=== PATIENT | male | born 1970 | race Caucasian/White ===

== ENCOUNTER → 2019-01-22 09:28 | Outpatient (CLI) | payer OTHER, SELFPAY ==
[2019-01-17 14:19] VITALS: BMI 35.8
--- NOTE | 2019-01-22 09:46 | EKG12_ITS ---
Test Reason : Blood Pressure : / mmHG Vent. Rate : 071 BPM Atrial Rate : 071 BPM P-R Int : 172 ms QRS Dur : 092 ms QT Int : 374 ms P-R-T Axes : 064 012 020 degrees QTc Int : 406 ms Normal sinus rhythm Normal ECG Confirmed by TIFFANY MARTINEZ, BRITNEY ([id number]), desk editor YUAN ABDALLA ([id number]) on 01/24/2019 9:49:24 AM Referred By: Sarabjit Ayers Confirmed By:BRITNEY ALLEN MD
[2019-01-22 10:47] LABS: Absolute Lymphocyte Count 1.86 X10^3/uL (0.83-4.51); Absolute Neutrophil Count 2.9 X10^3/uL (2.0-7.7); Basophil# 0.03 X10^3/uL; Basophil% 0.6 % (0-1); Eosinophil# 0.21 X10^3/uL; Eosinophils% 3.9 % (0-5); Hematocrit 46.1 % (40-54); Hemoglobin 15.4 g/dL (13.0-16.5); Lymphocyte # 1.86 X10^3/ul (4.0); Lymphocyte % 34.1 % (19-41); Mean Corp Hgb Conc 33.4 g/dL (32-36); Mean Corpuscular Hgb 27.9 pg (27.0-32.0); Mean Corpuscular Volume 83.7 fL (80-94); Mean Platelet Vol. 10.3 fl (6.2-12.0); Monocyte# 0.41 X10^3/uL; Monocyte% 7.5 % (0-10); NRBC Flagged by Analyzer 0 % (0-5); Neutrophil # 2.93 X10^3/uL (2.7-7.7); Neutrophil % 53.7 % (47-70); Platelet Count 197 K/mm3 (150-450); RBC Distribution Width CV 11.9 % (11.6-14.6); Red Blood Count 5.51 M/mm3 (4.6-6.2); White Blood Count 5.5 K/mm3 (4.4-11.0)
[2019-01-22 11:20] LABS: ALB/GLOB Ratio 1.2 RATIO (0.9-2.4); AST(SGOT) 14 U/L (15-37); Alanine Aminotransfer ALT/SGPT 26 U/L (16-61); Albumin, Serum 3.7 g/dL (3.2-5.0); Alkaline Phosphatase 88 U/L (45-117); Anion Gap 4 (5-15); BUN 17 mg/dL (7-18); BUN/Creat Ratio 13.6 RATIO (10-20); Calcium,Total 8.8 mg/dL (8.5-10.1); Chloride 111 mmol/L (98-107); Cholesterol 172 mg/dL (200); Creatinine, Serum 1.25 mg/dL (0.70-1.30); EST Glomerular Filtration Rate 66 mL/min (>60); Est Glom Filt Rate - Afr Amer 80 mL/min (>60); Globulin 3.2 g/dL (2.2-4.2); Glucose 83 mg/dL (74-106); High Density Lipoprotein 31 mg/dL; Potassium 4.3 mmol/L (3.5-5.1); Protein, Total 6.9 g/dL (6.4-8.2); Sodium Level 144 mmol/L (136-145); Triglycerides 125 mg/dL; Very Low Density Lipoprotein 25 mg/dL (5-40)
== END ==
PROVIDERS: Family Provider Internal Medicine; PCP Internal Medicine; Referring Provider Internal Medicine; Visit Provider Internal Medicine
DX: I10 Essential (primary) hypertension (principal)
CPT/HCPCS: 36415; 80053; 80061; 85025; 93005

== ENCOUNTER → 2020-02-21 14:23 | Outpatient (CLI) | payer OTHER, SELFPAY ==
[2020-02-21 13:55] VITALS: BMI 35.9
[2020-02-21 15:34] LABS: Absolute Lymphocyte Count 1.73 X10^3/uL (0.83-4.51); Absolute Neutrophil Count 4.2 X10^3/uL (2.0-7.7); Basophil# 0.03 X10^3/uL; Basophil% 0.5 % (0-1); Eosinophil# 0.18 X10^3/uL; Eosinophils% 2.7 % (0-5); Hematocrit 47.5 % (40-54); Hemoglobin 15.4 g/dL (13.0-16.5); Lymphocyte # 1.73 X10^3/ul (4.0); Lymphocyte % 26.2 % (19-41); Mean Corp Hgb Conc 32.4 g/dL (32-36); Mean Corpuscular Volume 83.3 fL (80-94); Mean Platelet Vol. 10.8 fl (6.2-12.0); Monocyte# 0.47 X10^3/uL; Monocyte% 7.1 % (0-10); NRBC Flagged by Analyzer 0 % (0-5); Neutrophil # 4.18 X10^3/uL (2.7-7.7); Neutrophil % 63.2 % (47-70); Platelet Count 212 K/mm3 (150-450); RBC Distribution Width CV 11.9 % (11.6-14.6); RBC Distribution Width SD 35.9 fl (35.1-43.9); White Blood Count 6.6 K/mm3 (4.4-11.0)
[2020-02-21 16:00] LABS: ALB/GLOB Ratio 1.2 RATIO (0.9-2.4); AST(SGOT) 15 U/L (15-37); Alanine Aminotransfer ALT/SGPT 32 U/L (16-61); Alkaline Phosphatase 94 U/L (45-117); Anion Gap 3 (5-15); BUN 21 mg/dL (7-18); BUN/Creat Ratio 15.8 RATIO (10-20); Calcium,Total 9.2 mg/dL (8.5-10.1); Chloride 109 mmol/L (98-107); Cholesterol 167 mg/dL (200); Creatinine, Serum 1.33 mg/dL (0.70-1.30); EST Glomerular Filtration Rate 61 mL/min (>60); Est Glom Filt Rate - Afr Amer 74 mL/min (>60); Globulin 3.2 g/dL (2.2-4.2); Glucose 78 mg/dL (74-106); High Density Lipoprotein 32 mg/dL; Potassium 4.5 mmol/L (3.5-5.1); Protein, Total 7.2 g/dL (6.4-8.2); Sodium Level 143 mmol/L (136-145); Triglycerides 195 mg/dL; Very Low Density Lipoprotein 39 mg/dL (5-40)
== END ==
PROVIDERS: PCP Internal Medicine; Referring Provider Internal Medicine; Visit Provider Internal Medicine
DX: I10 Essential (primary) hypertension (principal)
CPT/HCPCS: 36415; 80053; 80061; 85025

== ENCOUNTER → 2021-02-27 14:49 | Outpatient (CLI) | payer OTHER, SELFPAY ==
[2021-02-27 15:40] LABS: Absolute Lymphocyte Count 1.92 X10^3/uL (0.83-4.51); Absolute Neutrophil Count 3.5 X10^3/uL (2.0-7.7); Basophil# 0.03 X10^3/uL; Basophil% 0.5 % (0-1); Eosinophil# 0.21 X10^3/uL; Eosinophils% 3.4 % (0-5); Hematocrit 45.2 % (40-54); Lymphocyte # 1.92 X10^3/ul (0.83-4.51); Lymphocyte % 30.9 % (19-41); Mean Corp Hgb Conc 33.2 g/dL (32-36); Mean Corpuscular Hgb 27.7 pg (27.0-32.0); Mean Corpuscular Volume 83.4 fL (80-94); Mean Platelet Vol. 10.7 fl (6.2-12.0); Monocyte% 8.1 % (0-10); NRBC Flagged by Analyzer 0 % (0-5); Neutrophil # 3.54 X10^3/uL (2.7-7.7); Neutrophil % 56.9 % (47-70); Platelet Count 186 K/mm3 (150-450); RBC Distribution Width CV 12.4 % (11.6-14.6); RBC Distribution Width SD 37.2 fl (35.1-43.9); Red Blood Count 5.42 M/mm3 (4.6-6.2); White Blood Count 6.2 K/mm3 (4.4-11.0)
[2021-02-27 16:03] LABS: ALB/GLOB Ratio 1.2 RATIO (0.9-2.4); AST(SGOT) 14 U/L (15-37); Alanine Aminotransfer ALT/SGPT 36 U/L (16-61); Albumin, Serum 3.8 g/dL (3.2-5.0); Alkaline Phosphatase 83 U/L (45-117); Anion Gap 4 (5-15); BUN 23 mg/dL (7-18); BUN/Creat Ratio 18.4 RATIO (10-20); Calcium,Total 9.1 mg/dL (8.5-10.1); Chloride 108 mmol/L (98-107); Cholesterol 156 mg/dL (200); Creatinine, Serum 1.25 mg/dL (0.70-1.30); EST Glomerular Filtration Rate 65 mL/min (>60); Est Glom Filt Rate - Afr Amer 79 mL/min (>60); Globulin 3.3 g/dL (2.2-4.2); Glucose 77 mg/dL (74-106); High Density Lipoprotein 37 mg/dL; PSA,Total - Annual Screen 0.99 ng/mL (0.00-4.00); Protein, Total 7.1 g/dL (6.4-8.2); Sodium Level 143 mmol/L (136-145); Triglycerides 125 mg/dL; Very Low Density Lipoprotein 25 mg/dL (5-40)
== END ==
PROVIDERS: PCP Internal Medicine; Visit Provider Internal Medicine
DX: Z00.00 Encounter for general adult medical examination without abnormal findings (principal); I10 Essential (primary) hypertension
CPT/HCPCS: 36415; 80053; 80061; 84153; 85025; G0103

== ENCOUNTER 2021-04-30 14:10 | Outpatient (CLI) | payer BC, SELFPAY ==
--- NOTE | 2021-04-30 14:23 | EKG12_ITS ---
Test Reason : PRE OP Blood Pressure : / mmHG Vent. Rate : 075 BPM Atrial Rate : 075 BPM P-R Int : 168 ms QRS Dur : 092 ms QT Int : 370 ms P-R-T Axes : 057 023 035 degrees QTc Int : 413 ms Normal sinus rhythm Normal ECG Confirmed by JAILENE MARTINEZ, KIN ([id number]), editor index LIYA JAMIL ([id number]) on 05/02/2021 1:10:04 PM Referred By: Sarabjit Ayers Confirmed By:KIAH DENT MD
== END 2021-04-30 23:59 | disposition home or self-care (01) ==
LOC: PSN 14:14
PROVIDERS: PCP Internal Medicine; Referring Provider Internal Medicine; Visit Provider Internal Medicine
DX: I10 Essential (primary) hypertension (principal)
CPT/HCPCS: 93005

== ENCOUNTER → 2022-03-18 | Outpatient (CLI) | payer BC, SELFPAY ==
--- NOTE | 2022-03-18 16:45 | US_ITS ---
INDICATION: Multiple thyroid nodules EXAMINATION: Ultrasound US Thyroid (eg thyroid, parathyroid, parotid) TECHNIQUE: Godoy scale and color doppler imaging was performed of the thyroid gland. COMPARISON: None. FINDINGS: RIGHT THYROID LOBE: 4.3 x 2.1 x 2.3 cm. Heterogenous and multinodular. Largest nodule mid pole anteriorly 0.8 x 0.7 x 1.1 cm solid, hypoechoic, taller than right, smooth margins, contains a punctate echogenic foci. TR score 5. ACR guidelines would recommend FNA. LEFT THYROID LOBE: 4.3 x 1.4 x 2.2 cm. Heterogenous and multinodular. Largest nodule mid pole anteriorly 1.1 x 1.2 x 0.7 cm, solid, isoechoic, wider than tall, smooth margins, no punctate echogenic foci. TR score 3. ISTHMUS: 1.0 cm. Multinodular. US/Thyroid IMPRESSION: Multinodular thyroid. The largest nodule on the right meets criteria to recommend FNA per ACR guidelines. Electronically Signed: Elieser Henao MD at 23:26 EST Reading Location ID and State: [facility] [place] Tel , Service support ,
== END | disposition home or self-care (01) ==
LOC: US 16:44
PROVIDERS: PCP Internal Medicine; Referring Provider Surgery; Visit Provider Surgery
DX: E04.1 Nontoxic single thyroid nodule (principal)
CPT/HCPCS: 76536

== ENCOUNTER → 2022-03-29 | Outpatient (CLI) | payer BC, SELFPAY ==
[2022-03-29 11:09] LABS: Absolute Lymphocyte Count 1.96 X10^3/uL (0.83-4.51); Absolute Neutrophil Count 2.8 X10^3/uL (2.0-7.7); Basophil# 0.03 X10^3/uL; Basophil% 0.6 % (0-1); Eosinophil# 0.14 X10^3/uL; Eosinophils% 2.6 % (0-5); Hematocrit 46.7 % (40-54); Lymphocyte # 1.96 X10^3/ul (0.83-4.51); Lymphocyte % 36.9 % (19-41); Mean Corp Hgb Conc 34.3 g/dL (32-36); Mean Corpuscular Hgb 28.3 pg (27.0-32.0); Mean Corpuscular Volume 82.7 fL (80-94); Mean Platelet Vol. 10.3 fl (6.2-12.0); Monocyte% 7.5 % (0-10); NRBC Flagged by Analyzer 0 % (0-5); Neutrophil # 2.77 X10^3/uL (2.7-7.7); Neutrophil % 52.2 % (47-70); Platelet Count 208 K/mm3 (150-450); RBC Distribution Width CV 11.9 % (11.6-14.6); RBC Distribution Width SD 36.1 fl (35.1-43.9); Red Blood Count 5.65 M/mm3 (4.6-6.2); White Blood Count 5.3 K/mm3 (4.4-11.0)
[2022-03-29 11:40] LABS: ALB/GLOB Ratio 1.1 RATIO (0.9-2.4); AST(SGOT) 18 U/L (15-37); Alanine Aminotransfer ALT/SGPT 28 U/L (16-61); Albumin, Serum 3.6 g/dL (3.2-5.0); Alkaline Phosphatase 84 U/L (45-117); Anion Gap 6 (5-15); BUN 14 mg/dL (7-18); BUN/Creat Ratio 11.3 RATIO (10-20); Calcium,Total 9.1 mg/dL (8.5-10.1); Chloride 108 mmol/L (98-107); Cholesterol 179 mg/dL (200); Creatinine, Serum 1.24 mg/dL (0.70-1.30); EST Glomerular Filtration Rate 66 mL/min (>60); Est Glom Filt Rate - Afr Amer 79 mL/min (>60); Globulin 3.3 g/dL (2.2-4.2); Glucose 77 mg/dL (74-106); High Density Lipoprotein 38 mg/dL; Protein, Total 6.9 g/dL (6.4-8.2); Sodium Level 143 mmol/L (136-145); Triglycerides 81 mg/dL; Very Low Density Lipoprotein 16 mg/dL (5-40)
== END | disposition home or self-care (01) ==
LOC: LAB 10:19
PROVIDERS: PCP Internal Medicine; Visit Provider Internal Medicine
DX: I10 Essential (primary) hypertension (principal)
CPT/HCPCS: 36415; 80053; 80061; 85025

== ENCOUNTER → 2022-03-31 | Outpatient (CLI) | payer BC, SELFPAY ==
--- NOTE | 2022-03-31 | FLU_PTH ---
PATIENT: LENI OLIVARES LOC: [facility] U#:[id number] AGE/SX: 52/M ROOM: RE03/31/[address]: Dr. Jose Patel MD : 1970 BED: DIS: 03/31/2022 SPEC #: [id number] RECD: 03/31/22 16:11 STATUS: FABIAN TONY #: [id number] MISTI: 03/31/22 00:[address]: Jose Patel DEPT: CYTOLOGY RECD BY: Brian Burroughs ENTERED: 04/01/22 08:57 SP TYPE: Fluid OTHR DR: Dr. Sarabjit Ayers MD Tissues: A - Thyroid gland, NOS B - Thyroid gland, NOS Procedures: Special Stain Group II Surgery Specimen Level IV Cytospin Fluid HEADER OPERATION: Fine needle aspiration right mid pole thyroid nodule PRE-OP DIAGNOSIS: Multiple thyroid nodules TISSUE SUBMITTED: A - FNA right mid pole thyroid nodule fluid, B - FNA right mid pole thyroid nodule x4 slides DIAGNOSIS CYTOLOGY A. Fine needle aspiration, right mid pole thyroid nodule fluid (cytospin and cell block): Adequate for evaluation. Benign, consistent with benign follicular/colloid nodule ([place] Category II). See comment. B. Fine needle aspiration, right mid pole thyroid nodule (smears): Negative for malignant cells. See comment. AM:salomon 04/02/2022 COMMENT A. The [place] System for thyroid diagnostic categorization was used in the evaluation of this case. The specimen is adequate for evaluation. B. The specimen only contains rare benign follicular cells. The specimen is suboptimal and precludes further evaluation. Clinical correlation is suggested. CYTOLOGY STUDY Slides are reviewed. CYTOLOGY GROSS A - Received is 40 ml of red fluid labeled with the patient's name and and designated per the requisition as right mid pole thyroid nodule. Submitted for cytology preparation including cell block. B - Received are four smears labeled with the patient's name and designated per the requisition as right mid pole thyroid nodule. Submitted for staining. / salomon 04/01/2022 TC:5 CPT: 72095 x2, 09004
== END | disposition home or self-care (01) ==
LOC: LABSPEC 16:16
PROVIDERS: PCP Internal Medicine; Referring Provider Surgery; Visit Provider Surgery
DX: E04.2 Nontoxic multinodular goiter (principal)
CPT/HCPCS: 88108; 88305; 88313

== ENCOUNTER 2022-04-07 11:40 | Day surgery (SDC) | payer BC, SELFPAY ==
--- NOTE | 2022-04-07 | GASB_PTH ---
PATIENT: LENI OLIVARES LOC: [facility] U#:[id number] AGE/SX: 52/M ROOM: RE04/07/[address]: Dr. Jose Patel MD : 1970 BED: DIS: 04/07/2022 SPEC #: [id number] RECD: 04/07/22 15:13 STATUS: FABIAN TONY #: [id number] MISTI: 04/07/22 00:[address]: Jose Patel DEPT: SURGICAL PATHOLOGY RECD BY: Brian Burroughs ENTERED: 04/08/22 09:10 SP TYPE: Gastric Bx OTHR DR: Dr. Sarabjit Ayers MD Tissues: A - Gastric mucous membrane B - Esophageal mucous membrane C - Esophageal mucous membrane D - Esophageal mucous membrane E - Cecum, NOS F - Sigmoid colon biopsy Procedures: Surgery Specimen Level IV HEADER OPERATION: [place]oscopy[place] [place] and polypectomy PRE-OP DIAGNOSIS: Food sticks on swallowing; colon cancer screening; thyroid nodule TISSUE SUBMITTED: MICROSCOPIC DIAGNOSIS A. Gastroesophageal junction biopsy, Gastric mucosa with chronic inflammation No evidence of goblet cell metaplasia B. Esophagus, random biopsy, No pathologic change. C. Middle third of esophagus polyp, Minimal chronic inflammation. D. Proximal esophagus nodule biopsy, No pathologic change. E. Cecal polyp biopsy, Fragments of tubular adenoma. F. Sigmoid colon polyp biopsy, Fragments of hyperplastic polyp AM:jan 04/09/22 COMMENT A. Alcian blue/PAS stain with matched control is negative for intestinal metaplasia MICROSCOPIC DESCRIPTION Slides are reviewed. GROSS DESCRIPTION A. Received is one container labeled with the patient name and designated GE junction. The specimen consists of one irregular fragment of light vyas soft tissue that measures 0.5 x 0.3 x 0.1 cm. The specimen is totally submitted in one cassette. B. Received is one container labeled with the patient name and designated random esophagus. The specimen consists of one irregular fragment of light vyas soft tissue that measures 0.3 x 0.3 x 0.1 cm. The specimen is totally submitted in one cassette. C. Received is one container labeled with the patient name and designated middle third of esophagus polyp. The specimen consists of one irregular fragment of light vyas soft tissue that measures 0.2 x 0.2 x 0.2 cm. The specimen is totally submitted in one cassette. D. Received is one container labeled with the patient name and designated proximal esophagus nodule. The specimen consists of multiple irregular fragment of light vyas soft tissue that measures 0.5 x 0.3 x 0.1 cm. The specimen is totally submitted in one cassette. E. Received is one container labeled with the patient name and designated cecal polyp. The specimen consists of multiple irregular fragment of light vyas soft tissue that measures 1 x 0.5 x 0.1 cm. The specimen is totally submitted in one cassette. F. Received is one container labeled with the patient name and designated sigmoid colon polyp. The specimen consists of multiple irregular fragment of light vyas soft tissue that measures 0.7 x 0.3 x 0.1 cm. The specimen is totally submitted in one cassette. /AM:jan 04/09/2022 TC: 3 CPT: 56580 x6, 04780
[2022-04-07 12:25] VITALS: BP 137/94; PULSE 85; RESP 16; TEMP 37.3; O2SAT 100; BMI 33.7
--- NOTE | 2022-04-07 13:02 | PCM.HP.BLA ---
History and Physical Date of Admission: 04/07/22 Date of Service:? 03/11/22 MR#: [id number] Acct: [id number] Name:LENI ALMAZAN Rep #: [id number] : 1970 ? ? Provider: Dr. Jose Patel MD Age/Sex:? 52/M ? ? Location: [facility] Status: Signed Intake Vital Signs ? 02/27/2114:06 03/11/2308:27 Height 5 ft 11 in 5 ft 11 in Weight: ? 249 lb 4 oz BMI ? 34.7 BP ? 137/88 H Blood Pressure Location ? Rt brachial Position ? Sitting Respiration ? 17 Pulse ? 77 Pulse Source ? Monitor Temp ? 97.3 F L Temp Source ? Temporal Pulse Oximetry (%) ? 97 Oxygen Delivery Method ? room air Intake Visit Reasons:?Cscope/EGD Chief Complaint: cscope/egd Is patient in pain?: No Allergies No Known Allergies Allergy (Verified 03/11/22 09:28) Medications amlodipine 10 mg tablet 10 mg PO DAILY #90 tabs 02/27/22 [Rx Confirmed 03/11/22] PFSH Medical History?(Updated 03/11/22 @ 13:[address] Jose Patel MD) Asthma Colon cancer screening Food sticks on swallowing Health care maintenance Macular degeneration Obstructive sleep apnea Preventative health care Seasonal allergies Thyroid nodule Surgical History? History of tonsillectomy Family History?(Updated 03/11/22 @ 09:27 by Kavitha Mohamud) Father HypertensionOther Graves disease Thyroid disorder Social History? Smoking Status:? Never smoker alcohol intake:? never substance use type:? does not use what type of physical activity do you participate in:? none HPI HPI HPI: Patient is a 52-year-old male who presents for difficulty swallowing and need to arrange a screening colonoscopy secondary to age and no prior endoscopy.? They are referred for surgical consultation from Dr. yAers. ? Additional symptoms include: No significant history of reflux or heartburn..? Symptoms have been present for for the past couple of years.? Patient complains of meat?particularly steak or pork?becoming stuck in his lower neck area.? He states that it is approximately 50-50 whether or not he is able to clear the obstruction with water or must go to the bathroom and vomit things out.? This has never translated to an emergency room visit or been brought to medical attention previously.? He has no prior diagnosis of hiatal hernia or eosinophilic esophagitis.? He has never undergone prior EGD. As above, in addition to complaints of dysphagia, patient presents for need to schedule screening colonoscopy secondary to age.? Patient has not had prior colonoscopy.? Patient has no personal history of colon cancer, inflammatory bowel disease, or diverticulitis. They describe their bowel habits as normal.? They have approximately 1 per day and spend roughly 1 minutes on the toilet without significant straining.? They have not noticed recent bleeding or dark stools.? They have not noticed any thinning of their stools.? They do have a history of hemorrhoids, but states that there is been no recent history. Patient has no family history of colon polyps, colon cancer, inflammatory bowel disease, or diverticulitis.? ? The patient's weight is stable. The patient is not prescribed anticoagulants/blood thinners. Relevant prior abdominal surgical history includes: Noncontributory In addition to the above GI reports, patient's reports that his mother had a diagnosis of Graves' disease.? For his part, Mr. Parker has never undergone significant evaluation for this possibility, but he denies any significant concerning symptoms of fatigue, frequent sweating, tremor, or arrhythmia. ROS General General: No weight change, appetite, fatigue, colon cancer, breast cancer or weakness HEENT HEENT: No difficulty swallowing, eye injury, eye surgery, swollen glands or hoarseness Endo Endocrine: No thyroid disease, diabetes mellitus, thyroid cancer, Hair loss, heat intolerance or cold intolerance Skin Skin: No rash or changing moles Musc Musculoskeletal: No back problems, arthritis, rheumatoid arthritis, gout or joint pain Cardio Cardiovascular: Yes high blood pressure; No murmur, pacemaker, heart disease, atrial fibrillation, heart attack, heart stent, palpitations, shortness of breat with exertion or chest pain Psych Psychiatric: No depression, anxiety or hearing voices Resp Respiratory: No shortness of breath, No sleep apnea, No cough, No COPD, Yes asthma, No emphysema and No wheezing Gastro Gastrointestinal: No abdominal pain, No nausea or vomiting, No diarrhea, No constipation, No blood in stool, No acid reflux, No hemorrhoids, No ulcers, No gallbladder problem and No black,tarry stools Lee Hematologic: No blood thinners, No blood disorders, No bleeding, No anemia and No blood clots Neuro Neurologic: No system reviewed and no additional complaints, except as documented, No as per HPI, No abnormal gait, No abnormal hearing, No abnormal movements, No abnormal speech, No behavioral changes, No burning sensations, No confusion, No convulsions, No disequilibrium, No dizziness, No localized weakness, No frequent falls, No headache(s), No lack of coordination, No loss of vision, No memory loss, No numbness, No other visual disturbances, No radicular pain, No restless legs, No sensory deficit, No syncope, No tingling, No tremor(s), No weakness and No other Exam Const General: cooperative, comfortable and no acute distress Neck Lymphatic: no lymphadenopathy noted Other: Patient has some asymmetrical fullness of his right thyroid with a palpable nodule.? This is nontender with palpation.? Bedside ultrasound is applied, but I have a difficult time making out the patient's inferior pole where there does seem to be a hypoechoic lesion Resp Effort & Inspection: normal respiratory effort GI Other: Nondistended, no scars, soft, nontender to palpation x4 quadrants Assessment and Plan Assessment and Plan (1) Food sticks on swallowing: ?Status:?Chronic ?Comment: Patient is a 52-year-old male with several year history of meat becoming stuck while eating.? He articulates this is not a problem with under chewing.? He denies this being a progressive problem.? He denies any history of heartburn or reflux.? I have discussed with him that there many possible etiologies to this problem?including some primarily of the neck.? I also suggested to him that he may be at a higher risk for a condition like eosinophilic esophagitis with his concurrent diagnosis of asthma.? I do agree with the recommendation to pursue upper endoscopy?especially in light of pending screening colonoscopy to evaluate for any mechanical cause of his issues.? We could also pursue a random biopsy in the esophagus to evaluate for possible eosinophilic esophagitis. ?Plan: Diagnostic EGD along with screening colonoscopy (see below) (2) Colon cancer screening: ?Status:?Acute ?Comment: This is a 52-year-old male without prior screening for colon cancer.? He is at average risk for colon cancer given his history detailed in HPI above.? He was due to have a colonoscopy last year, but referral was never completed through gastroenterology.? Patient denies any current difficulties with his bowel movements. ?Plan: Plan will be to complete screening colonoscopy (along with EGD as above) on first mutually agreeable date under local MAC.? Pre-procedure prep discussed and paper instructions provided.? Patient is also made aware that he will need to have a paratransit driver with him the day of the procedure. (3) Thyroid nodule: ?Status:?Acute ?Comment: Patient's communicated that patient's mother had a diagnosis of Graves' disease and given patient's dysphagia complaints, I examined his neck and find evidence of a right-sided thyroid nodule with some lobe enlargement.? My bedside ultrasound exam is suboptimal given difficulty obtaining resolution here patient's right carotid artery.? Therefore, I am requesting a formal thyroid ultrasound for better characterization. ?Plan: Thyroid ultrasound I have examined the patient the following changes are noted: Patient confirms that his thyroid biopsy site is well-healed and no longer causing any tenderness. Regarding his swallowing complaints, he denies any further episodes of food sticking. Lastly, he confirms that he completed bowel prep successfully for today's planned screening colonoscopy and that his output is now clear. Given this update we will proceed to endoscopy suite for upper and lower endoscopy under MAC sedation as planned.
[2022-04-07 15:05] VITALS: BP 114/77; BP 137/94; PULSE 80; RESP 18; TEMP 36.1; O2SAT 100
[2022-04-07 15:10] VITALS: BP 118/79; BP 137/94; PULSE 83; RESP 18; O2SAT 100
--- NOTE | 2022-04-07 15:10 | OP.EGD_ITS ---
Patient Name: Fran Parker Procedure Date: 04/07/2022 1:40 PM Date of : 1970 Age: 52 Procedure: Upper GI endoscopy Indications: Dysphagia Providers: Jose Patel MD Medicines: See the Anesthesia note for documentation of the administered medications Patient Profile: Refer to note in patient chart for documentation of history and physical. Complications: No immediate complications. Estimated blood loss: Minimal. Procedure: Pre-Anesthesia Assessment: - The heart rate, respiratory rate, oxygen saturations, blood pressure, adequacy of pulmonary ventilation, and response to care were monitored throughout the procedure. After obtaining informed consent, the endoscope was passed under direct vision. Throughout the procedure, the patient's blood pressure, pulse, and oxygen saturations were monitored continuously. The Endoscope was introduced through the mouth, and advanced to the second part of duodenum. The upper GI endoscopy was accomplished without difficulty. The patient tolerated the procedure well. Scope In: 1:46:07 PM Scope Out: 2:08:12 PM Total Procedure Duration Time 0 hours 22 minutes 5 seconds Findings: The duodenal bulb, first portion of the duodenum and second portion of the duodenum were normal. No biopsies or other specimens were collected for this exam. A small hiatal hernia was present. No biopsies or other specimens were collected for this exam. The Z-line was irregular and was found 40 cm from the incisors. Biopsies were taken with a cold forceps for histology. Estimated blood loss was minimal. A medium-sized, frondlike mass with no bleeding and no stigmata of recent bleeding was found in the middle third of the esophagus. The mass was non-obstructing and not circumferential. One biopsy was obtained in the middle third of the esophagus with hot snare for histology. Estimated blood loss: none. A few 3 mm mucosal nodules with a localized distribution were found in the upper third of the esophagus. Biopsies were taken with a cold forceps for histology. Estimated blood loss was minimal. Impression: - Normal duodenal bulb, first portion of the duodenum and second portion of the duodenum. No specimens collected. - Small hiatal hernia. No specimens collected. - Z-line irregular, 40 cm from the incisors. Biopsied. 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 - Mucosal nodule found in the esophagus. Biopsied. - One biopsy was obtained in the middle third of the esophagus. Recommendation: - Discharge patient to home (via wheelchair). - Resume previous diet today. - Continue present medications. - Await pathology results. - Telephone my office for pathology results in 1 week. Procedure Code(s): --- Professional --- 01865, Esophagogastroduodenoscopy, flexible, transoral; with removal of tumor(s), polyp(s), or other lesion(s) by snare technique Diagnosis Code(s): --- Professional --- K44.9, Diaphragmatic hernia without obstruction or gangrene K22.8, Other specified diseases of esophagus D49.0, Neoplasm of unspecified behavior of digestive system R13.10, Dysphagia, unspecified CPT copyright 2017 [employer]. All rights reserved. The codes documented in this report are preliminary and upon emergency room physician review may be revised to meet current compliance requirements. Jose Patel MD 04/07/2022 3:10:39 PM This report has been signed electronically. Number of Addenda: 0 Note Initiated On: 04/07/2022 1:40 PM
--- NOTE | 2022-04-07 15:11 | OP.CCLET_ITS ---
04/07/2022 Sarabjit Ayers MD [address] [place] [address] [place] [address] Re : Upper GI endoscopy procedure for [facility] Dear Dr. Ayers This procedure was performed on Thursday, April 07, 2022. My impressions and recommendations are as follows: Impressions : - Normal duodenal bulb, first portion of the duodenum and second portion of the duodenum. No specimens collected. - Small hiatal hernia. No specimens collected. - Z-line irregular, 40 cm from the incisors. Biopsied. 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 - Mucosal nodule found in the esophagus. Biopsied. - One biopsy was obtained in the middle third of the esophagus. Recommendations : - Discharge patient to home (via wheelchair). - Resume previous diet today. - Continue present medications. - Await pathology results. - Telephone my office for pathology results in 1 week. My findings are described in the full procedure note, which is enclosed. If I can be of further assistance, please feel free to contact me at Doctor phone number(s): , Work: . Sincerely, Jose Patel MD 04/07/2022 3:10:39 PM This report has been signed electronically.
[2022-04-07 15:15] VITALS: BP 118/81; BP 137/94; PULSE 82; RESP 18; O2SAT 100
--- NOTE | 2022-04-07 15:18 | OP.COLON_ITS ---
Patient Name: Fran Parker Procedure Date: 04/07/2022 2:09 PM Date of : 1970 Age: 52 Procedure: Colonoscopy Indications: Screening for colorectal malignant neoplasm Providers: Jose Patel MD Medicines: See the Anesthesia note for documentation of the administered medications Patient Profile: Refer to note in patient chart for documentation of history and physical. Last Colonoscopy: none. The patient's first colonoscopy is today. Complications: No immediate complications. Estimated blood loss: Minimal. Procedure: Pre-Anesthesia Assessment: - The heart rate, respiratory rate, oxygen saturations, blood pressure, adequacy of pulmonary ventilation, and response to care were monitored throughout the procedure. After I obtained informed consent, the scope was passed under direct vision. Throughout the procedure, the patient's blood pressure, pulse, and oxygen saturations were monitored continuously. The pediatric colonoscope was introduced through the anus and advanced to the cecum, identified by appendiceal orifice and ileocecal valve. The colonoscopy was somewhat difficult due to poor bowel prep. Successful completion of the procedure was aided by lavage. The patient tolerated the procedure well. The quality of the bowel preparation was good except the ascending colon was poor. Scope In: 2:13:03 PM Scope Withdrawal Time 0 hours 38 minutes 35 seconds Scope Out: 2:58:14 PM Total Procedure Duration Time 0 hours 45 minutes 11 seconds Findings: The perianal and digital rectal examinations were normal. A 5 mm polyp was found in the cecum. The polyp was semi-sessile. Biopsies were taken with a cold forceps for histology. Estimated blood loss was minimal. A 3 mm polyp was found in the distal sigmoid colon. The polyp was semi-sessile. Biopsies were taken with a cold forceps for histology. Estimated blood loss was minimal. Internal hemorrhoids were found during retroflexion. The hemorrhoids were Grade I (internal hemorrhoids that do not prolapse). No biopsies or other specimens were collected for this exam. Impression: - One 5 mm polyp in the cecum. Biopsied. - One 3 mm polyp in the distal sigmoid colon. Biopsied. - Internal hemorrhoids. No specimens collected. Recommendation: - Repeat colonoscopy date to be determined after pending pathology results are reviewed for surveillance based on pathology results. - Telephone my office for pathology results in 1 week. - Continue present medications. Procedure Code(s): --- Professional --- 15633, Colonoscopy, flexible; with biopsy, single or multiple Diagnosis Code(s): --- Professional --- Z12.11, Encounter for screening for malignant neoplasm of colon D12.0, Benign neoplasm of cecum D12.5, Benign neoplasm of sigmoid colon K64.0, First degree hemorrhoids CPT copyright 2017 [employer]. All rights reserved. The codes documented in this report are preliminary and upon real estate representative review may be revised to meet current compliance requirements. Jose Patel MD 04/07/2022 3:18:12 PM This report has been signed electronically. Number of Addenda: 0 Note Initiated On: 04/07/2022 2:09 PM
--- NOTE | 2022-04-07 15:19 | OP.CCLET_ITS ---
04/07/2022 Sarabjit Ayers MD [address] [place] [address] [place] [address] Re : Colonoscopy procedure for [facility] Dear Dr. Ayers This procedure was performed on Thursday, April 07, 2022. My impressions and recommendations are as follows: Impressions : - One 5 mm polyp in the cecum. Biopsied. - One 3 mm polyp in the distal sigmoid colon. Biopsied. - Internal hemorrhoids. No specimens collected. Recommendations : - Repeat colonoscopy date to be determined after pending pathology results are reviewed for surveillance based on pathology results. - Telephone my office for pathology results in 1 week. - Continue present medications. My findings are described in the full procedure note, which is enclosed. If I can be of further assistance, please feel free to contact me at Doctor phone number(s): , Work: . Sincerely, Jose Patel MD 04/07/2022 3:18:12 PM This report has been signed electronically.
[2022-04-07 15:20] VITALS: BP 120/81; BP 137/94; PULSE 74; RESP 18; TEMP 36.3; O2SAT 99
[2022-04-07 15:42] VITALS: BP 137/94
== END 2022-04-07 16:08 | disposition home or self-care (01) ==
LOC: EN 11:44 → AC 11:44
PROVIDERS: PCP Internal Medicine; Referring Provider Surgery; Visit Provider Surgery
PROC: 0DJD8ZZ Inspection of Lower Intestinal Tract, Via Natural or Artificial Opening Endoscopic (ICD-10-PCS; CPT 45378; principal; 2022-04-07 12:55)
DX: Z12.11 Encounter for screening for malignant neoplasm of colon (principal); K44.9 Diaphragmatic hernia without obstruction or gangrene; J45.909 Unspecified asthma, uncomplicated; R13.10 Dysphagia, unspecified; K64.0 First degree hemorrhoids; D49.0 Neoplasm of unspecified behavior of digestive system; D12.0 Benign neoplasm of cecum; D12.5 Benign neoplasm of sigmoid colon; E04.1 Nontoxic single thyroid nodule
CPT/HCPCS: 45380; 43251; 43239; 88305; J7120; J2405

== ENCOUNTER → 2023-03-05 | Outpatient (CLI) | payer BC, SELFPAY ==
--- NOTE | 2023-03-05 14:41 | US_ITS ---
STUDY: THYROID ULTRASOUND REASON FOR EXAM: Male, 53 years old. Thyroid nodule TECHNIQUE: Ultrasound evaluation of the thyroid was performed with real-time and static delacruz-scale imaging. COMPARISON: None. FINDINGS: RIGHT LOBE: The right lobe of the thyroid gland measures 4.8 x 2.1 x 2.3 cm. There is a slightly heterogeneous echotexture. There are no demonstrated solid, cystic or complex lesions. LEFT LOBE: The left lobe of the thyroid gland measures 4.5 x 1.7 x 2.0 cm. There is a slightly heterogeneous echotexture. There are no demonstrated solid, cystic or complex lesions. ISTHMUS: The isthmus measures 0.71 cm. The regional lymph nodes are normal. US/Thyroid IMPRESSION: Nonspecific mild heterogeneity of the thyroid gland with no distinct nodule or mass seen. Electronically Signed: Armida Hernandez MD at 17:02 EST ,
== END | disposition home or self-care (01) ==
LOC: US 14:01
PROVIDERS: PCP Internal Medicine; Referring Provider Surgery; Visit Provider Surgery
DX: E04.1 Nontoxic single thyroid nodule (principal)
CPT/HCPCS: 76536

== ENCOUNTER → 2023-03-16 | Outpatient (CLI) | payer BC, SELFPAY ==
[2023-03-16 12:38] LABS: Absolute Lymphocyte Count 1.58 X10^3/uL (0.83-4.51); Absolute Neutrophil Count 2.7 X10^3/uL (2.0-7.7); Basophil# 0.04 X10^3/uL; Basophil% 0.8 % (0-1); Eosinophils% 4.1 % (0-5); Hematocrit 47.3 % (40-54); Hemoglobin 15.5 g/dL (13.0-16.5); Lymphocyte # 1.58 X10^3/ul (0.83-4.51); Lymphocyte % 32.3 % (19-41); Mean Corp Hgb Conc 32.8 g/dL (32-36); Mean Corpuscular Hgb 27.7 pg (27.0-32.0); Mean Corpuscular Volume 84.6 fL (80-94); Mean Platelet Vol. 10.8 fl (6.2-12.0); Monocyte% 8.2 % (0-10); NRBC Flagged by Analyzer 0 % (0-5); Neutrophil # 2.65 X10^3/uL (2.7-7.7); Neutrophil % 54.2 % (47-70); Platelet Count 203 K/mm3 (150-450); RBC Distribution Width CV 12.2 % (11.6-14.6); RBC Distribution Width SD 37.2 fl (35.1-43.9); Red Blood Count 5.59 M/mm3 (4.6-6.2); White Blood Count 4.9 K/mm3 (4.4-11.0)
[2023-03-16 14:06] LABS: AST(SGOT) 11 U/L (15-37); Alanine Aminotransfer ALT/SGPT 28 U/L (16-61); Albumin, Serum 3.6 g/dL (3.2-5.0); Alkaline Phosphatase 84 U/L (45-117); Anion Gap 6 (5-15); BUN 19 mg/dL (7-18); BUN/Creat Ratio 15.6 RATIO (10-20); Chloride 109 mmol/L (98-107); Cholesterol 169 mg/dL (200); Creatinine, Serum 1.22 mg/dL (0.70-1.30); EST Glomerular Filtration Rate 67 mL/min (>60); Est Glom Filt Rate - Afr Amer 81 mL/min (>60); Globulin 3.5 g/dL (2.2-4.2); Glucose 90 mg/dL (74-106); High Density Lipoprotein 37 mg/dL; Potassium 3.7 mmol/L (3.5-5.1); Protein, Total 7.1 g/dL (6.4-8.2); Sodium Level 143 mmol/L (136-145); Triglycerides 110 mg/dL; Very Low Density Lipoprotein 22 mg/dL (5-40)
== END | disposition home or self-care (01) ==
LOC: BIMLAB 08:22
PROVIDERS: PCP Internal Medicine; Referring Provider Internal Medicine; Visit Provider Internal Medicine
DX: Z00.00 Encounter for general adult medical examination without abnormal findings (principal)
CPT/HCPCS: 36415; 80053; 80061; 84153; 85025; G0103

== ENCOUNTER → 2024-03-21 | Outpatient (CLI) | payer BC, SELFPAY ==
[2024-03-21 12:01] LABS: Absolute Lymphocyte Count 1.51 X10^3/uL (0.83-4.51); Absolute Neutrophil Count 2.9 X10^3/uL (2.0-7.7); Basophil# 0.03 X10^3/uL; Basophil% 0.6 % (0-1); Eosinophil# 0.14 X10^3/uL; Eosinophils% 2.8 % (0-5); Hematocrit 48.9 % (40-54); Hemoglobin 16.3 g/dL (13.0-16.5); Lymphocyte # 1.51 X10^3/ul (0.83-4.51); Lymphocyte % 30.3 % (19-41); Mean Corp Hgb Conc 33.3 g/dL (32-36); Mean Corpuscular Hgb 28.1 pg (27.0-32.0); Mean Corpuscular Volume 84.2 fL (80-94); Mean Platelet Vol. 10.5 fl (6.2-12.0); Monocyte# 0.41 X10^3/uL; Monocyte% 8.2 % (0-10); NRBC Flagged by Analyzer 0 % (0-5); Neutrophil # 2.89 X10^3/uL (2.7-7.7); Neutrophil % 57.9 % (47-70); Platelet Count 241 K/mm3 (150-450); RBC Distribution Width SD 36.1 fl (35.1-43.9); Red Blood Count 5.81 M/mm3 (4.6-6.2)
[2024-03-21 12:32] LABS: ALB/GLOB Ratio 1.1 RATIO (0.9-2.4); AST(SGOT) 17 U/L (15-37); Alanine Aminotransfer ALT/SGPT 24 U/L (16-61); Albumin, Serum 3.9 g/dL (3.2-5.0); Alkaline Phosphatase 97 U/L (45-117); Anion Gap 3 (5-15); BUN 19 mg/dL (7-18); BUN/Creat Ratio 13.1 RATIO (10-20); Calcium,Total 9.6 mg/dL (8.5-10.1); Chloride 109 mmol/L (98-107); Cholesterol 186 mg/dL (200); Creatinine, Serum 1.45 mg/dL (0.70-1.30); EST Glomerular Filtration Rate 54 mL/min (>60); Est Glom Filt Rate - Afr Amer 66 mL/min (>60); Globulin 3.5 g/dL (2.2-4.2); Glucose 95 mg/dL (74-106); High Density Lipoprotein 40 mg/dL; PSA,Total - Annual Screen 2.87 ng/mL (0.00-4.00); Potassium 4.4 mmol/L (3.5-5.1); Protein, Total 7.4 g/dL (6.4-8.2); Sodium Level 142 mmol/L (136-145); Triglycerides 90 mg/dL; Very Low Density Lipoprotein 18 mg/dL (5-40)
== END | disposition home or self-care (01) ==
LOC: BIMLAB 08:30
PROVIDERS: PCP Internal Medicine; Referring Provider Internal Medicine; Visit Provider Internal Medicine
DX: Z00.00 Encounter for general adult medical examination without abnormal findings (principal)
CPT/HCPCS: 36415; 80053; 80061; 84153; 85025; G0103